=== PATIENT | female | born 1970 | race Asian ===

== ENCOUNTER 2018-05-05 07:27 | Day surgery (SDC) | payer OTHER ==
[~2018-05-05 07:27] MED LIST: DESFLURANE 15 MIN
[2018-05-05] MEDS ORDERED: SOD CHLORIDE 0.9% 1,000 ML IV (09:00)
[2018-05-05] MEDS ORDERED: CEFAZOLIN 1 GM/50 ML (PMX) 50 ML IVPB (09:00)
[2018-05-05] MEDS ORDERED: METOCLOPRAMIDE 10 MG INJ IV (13:00)
[2018-05-05] MEDS ORDERED: FENTAnyl 50 MCG/ML VIAL IV (13:00)
[2018-05-05] MEDS ORDERED: LABETALOL HCL 20MG INJ IV (13:00)
[2018-05-05] MEDS ORDERED: hydrALAzine 20 MG INJ IV (13:00)
[2018-05-05] MEDS ORDERED: HYDROmorphONE 1 MG/5 ML IV SYRINGE IV ×2 (13:00)
[2018-05-05] MEDS ORDERED: FENTAnyl 50 MCG/ML VIAL (13:44)
[2018-05-05] MEDS ORDERED: SUGAMMADEX SODIUM 200 MG/2 ML VIAL IV (13:44)
[2018-05-05] MEDS ORDERED: MIDAZOLAM 1 MG/ML 2 ML INJ (13:44)
[2018-05-05] MEDS ORDERED: PHENYLephrine (100 MCG/ML) 10ML SYG (13:44)
[2018-05-05] MEDS ORDERED: DEXAMETHASONE 4 MG/ML 5 ML INJ (13:56)
[2018-05-05] MEDS ORDERED: CEFAZOLIN 1 GM INJ (13:56)
[2018-05-05] MEDS ORDERED: ONDANSETRON 4 MG INJ (13:56)
[2018-05-05] MEDS ORDERED: ROCURONIUM 50 MG INJ (14:10)
[2018-05-05] MEDS ORDERED: LIDOCAINE 100 MG SYRINGE (14:10)
[2018-05-05] MEDS ORDERED: PROPOFOL 20 ML (14:10)
[2018-05-05] MEDS: MEPERIDINE 25 MG INJ IV (15:36)
[2018-05-05] MEDS: ONDANSETRON 4 MG INJ IV (15:37)
[2018-05-05] MEDS: FENTAnyl 50 MCG/ML VIAL IV ×2 (15:45→15:54)
[2018-05-05] MEDS: HYDROCODONE/APAP (7.5/325) TAB PO (16:14)
== END 2018-05-05 17:35 | disposition home or self-care (01) ==
LOC: SDS 07:27
DX: D05.12 Intraductal carcinoma in situ of left breast (principal)
CPT/HCPCS: 19120; 84703; 88307

== ENCOUNTER 2018-05-16 23:12 | Inpatient (IN) | payer OTHER ==
[2018-05-17] MEDS: VANCOMYCIN 1 GM (PMX) 250 ML IVPB (01:00)
[2018-05-17] MEDS: SODIUM CHLORIDE 0.9% 1L BAG IV* (01:05)
[2018-05-17] MEDS: morphine 2 MG INJ IV (01:05)
[2018-05-17] MEDS: PIPER-TAZO 3.375 GM IV (PMX) 100 ML IVPB ×5 (01:05→23:40)
[2018-05-17] MEDS: ONDANSETRON 4 MG INJ IV (01:05)
[2018-05-17 01:22] LABS: ADD UMIC YES; UR ASCORBIC ACID NEGATIVE (NEGATIVE); UR BACTERIA FEW /HPF (NONE SEEN); UR BILIRUBIN (Dip) NEGATIVE (NEGATIVE); UR BLOOD (Dip) 2+ mg/dL (NEGATIVE); UR CLARITY CLEAR (CLEAR); UR COLOR YELLOW (YELLOW); UR GLUCOSE (Dip) NEGATIVE (NEGATIVE); UR KETONES (Dip) TRACE mg/dL (NEGATIVE); UR LEUKOCYTE ESTERASE (Dip) TRACE Leu/ul (NEGATIVE); UR MUCUS FEW /HPF (NONE SEEN); UR NITRITE (Dip) NEGATIVE (NEGATIVE); UR RBC 2 /HPF (0-5); UR SPECIFIC GRAVITY (Dip) 1.011 (1.003-1.030); UR TOTAL PROTEIN (Dip) NEGATIVE (NEGATIVE); UR UROBILINOGEN (Dip) NEGATIVE (NEGATIVE); UR WBC 5 /HPF (0-5)
[2018-05-17 01:25] LABS: ADD MAN DIFF? NO
[2018-05-17 01:26] LABS: BASOPHILS % 0.4 % (0.0-2.0); EOSINOPHILS # 0.7 10^3/ul (0.0-0.5); EOSINOPHILS % 7.8 % (0.0-7.0); HEMATOCRIT 32.9 % (37.0-47.0); LYMPHOCYTES # 1.6 10^3/ul (0.8-2.9); LYMPHOCYTES % 17.9 % (15.0-51.0); MEAN CORPUSCULAR HEMOGLOBIN 31.1 pg (29.0-33.0); MEAN CORPUSCULAR HGB CONC 33.4 g/dl (32.0-37.0); MEAN CORPUSCULAR VOLUME 92.9 fl (82.0-101.0); MEAN PLATELET VOLUME 9.6 fl (7.4-10.4); MONOCYTE # 0.8 10^3/ul (0.3-0.9); MONOCYTES % 8.6 % (0.0-11.0); NEUTROPHIL # 5.8 10^3/ul (1.6-7.5); NEUTROPHILS % 65.1 % (39.0-77.0); PLATELET COUNT 311 10^3/UL (140-415); RED BLOOD COUNT 3.54 10^6/ul (4.20-5.40); RED CELL DISTRIBUTION WIDTH 11.8 % (11.5-14.5)
[2018-05-17 01:26] LABS: WHITE BLOOD COUNT 8.9 10^3/ul (4.8-10.8)
[2018-05-17 01:33] LABS: INR 0.87; PROTIME 11.9 Sec (11.9-14.9); PT RATIO 0.9
[2018-05-17 01:34] LABS: ALANINE AMINOTRANSFERASE 27 IU/L (13-69); ALBUMIN 4.1 g/dl (3.3-4.9); ALKALINE PHOSPHATASE 60 IU/L (42-121); ANION GAP 6 (5-13); ASPARTATE AMINO TRANSFERASE 29 IU/L (15-46); BILIRUBIN,INDIRECT 0.1 mg/dl (0-1.1); BILIRUBIN,TOTAL 0.1 mg/dl (0.2-1.3); BLOOD UREA NITROGEN 11 mg/dl (7-20); CALCIUM 9.5 mg/dl (8.4-10.2); CARBON DIOXIDE 29 mmol/L (21-31); CHLORIDE 108 mmol/L (97-110); CREATININE 0.58 mg/dl (0.44-1.00); Estimated GFR > 60 mL/min (>60); GLUCOSE 114 mg/dl (70-220); POTASSIUM 3.6 mmol/L (3.5-5.1); SODIUM 143 mmol/L (135-144); TOTAL PROTEIN 7.8 g/dl (6.1-8.1)
[2018-05-17 01:45] LABS: TROPONIN-I < 0.012 ng/ml (0.000-0.120)
[2018-05-17] MEDS ORDERED: HYDROCODONE/APAP (5/325) TAB PO (02:00)
[2018-05-17] MEDS ORDERED: NACL 0.9% 3 ML SYG IV (02:00)
[2018-05-17] MEDS ORDERED: morphine 2 MG INJ IV (02:00)
[2018-05-17] MEDS ORDERED: VANCOMYCIN IV PER PHARMACY XX (02:00)
[2018-05-17 06:17] LABS: ADD MAN DIFF? NO
[2018-05-17 06:22] LABS: BASOPHILS % 0.5 % (0.0-2.0); EOSINOPHILS # 0.5 10^3/ul (0.0-0.5); EOSINOPHILS % 7.9 % (0.0-7.0); HEMATOCRIT 28.6 % (37.0-47.0); HEMOGLOBIN 9.4 g/dl (12.0-16.0); LYMPHOCYTES # 1.6 10^3/ul (0.8-2.9); MEAN CORPUSCULAR HEMOGLOBIN 30.5 pg (29.0-33.0); MEAN CORPUSCULAR HGB CONC 32.9 g/dl (32.0-37.0); MEAN CORPUSCULAR VOLUME 92.9 fl (82.0-101.0); MONOCYTE # 0.5 10^3/ul (0.3-0.9); MONOCYTES % 8.9 % (0.0-11.0); NEUTROPHIL # 3.4 10^3/ul (1.6-7.5); NEUTROPHILS % 56.4 % (39.0-77.0); PLATELET COUNT 251 10^3/UL (140-415); RED BLOOD COUNT 3.08 10^6/ul (4.20-5.40); RED CELL DISTRIBUTION WIDTH 11.9 % (11.5-14.5)
[2018-05-17 06:22] LABS: WHITE BLOOD COUNT 6.1 10^3/ul (4.8-10.8)
[2018-05-17 06:49] LABS: LACTIC ACID 0.7 mmol/L (0.5-2.0)
[2018-05-17 06:57] LABS: ALANINE AMINOTRANSFERASE 27 IU/L (13-69); ALBUMIN 3.2 g/dl (3.3-4.9); ALKALINE PHOSPHATASE 44 IU/L (42-121); ANION GAP 6 (5-13); ASPARTATE AMINO TRANSFERASE 21 IU/L (15-46); BILIRUBIN,INDIRECT 0.2 mg/dl (0-1.1); BILIRUBIN,TOTAL 0.2 mg/dl (0.2-1.3); BLOOD UREA NITROGEN 7 mg/dl (7-20); CALCIUM 8.5 mg/dl (8.4-10.2); CARBON DIOXIDE 28 mmol/L (21-31); CHLORIDE 111 mmol/L (97-110); CREATININE 0.56 mg/dl (0.44-1.00); Estimated GFR > 60 mL/min (>60); GLUCOSE 101 mg/dl (70-220); MAGNESIUM 2.2 mg/dl (1.7-2.5); SODIUM 145 mmol/L (135-144); TOTAL PROTEIN 6.1 g/dl (6.1-8.1)
[2018-05-17] MEDS: VANCOMYCIN 1 GM 250 ML IVPB ×2 (07:52→20:26)
[2018-05-17 13:31] LABS: C-REACTIVE PROTEIN 3.7 mg/dl (0.0-0.9)
[2018-05-17 14:04] LABS: ERYTHROCYTE SEDIMENTATION RATE 50 mm/Hr (0-20)
[2018-05-17] MEDS ORDERED: GUAIFENESIN/DM 5ML CUP PO (16:00)
[2018-05-17] MEDS: LACTOBACILLUS RHAMNOSUS CAP PO (20:26)
[2018-05-18] MEDS: HYDROCODONE/APAP (10/325) TAB PO ×2 (04:35→23:23)
[2018-05-18] MEDS: PIPER-TAZO 3.375 GM IV (PMX) 100 ML IVPB ×4 (05:43→23:23)
[2018-05-18 07:13] LABS: ADD MAN DIFF? NO
[2018-05-18 07:18] LABS: BASOPHILS % 0.7 % (0.0-2.0); EOSINOPHILS # 0.5 10^3/ul (0.0-0.5); HEMATOCRIT 28.9 % (37.0-47.0); HEMOGLOBIN 9.5 g/dl (12.0-16.0); LYMPHOCYTES # 1.5 10^3/ul (0.8-2.9); LYMPHOCYTES % 36.4 % (15.0-51.0); MEAN CORPUSCULAR HEMOGLOBIN 30.3 pg (29.0-33.0); MEAN CORPUSCULAR HGB CONC 32.9 g/dl (32.0-37.0); MEAN PLATELET VOLUME 9.1 fl (7.4-10.4); MONOCYTE # 0.4 10^3/ul (0.3-0.9); MONOCYTES % 9.1 % (0.0-11.0); NEUTROPHIL # 1.7 10^3/ul (1.6-7.5); NEUTROPHILS % 41.6 % (39.0-77.0); PLATELET COUNT 252 10^3/UL (140-415); RED BLOOD COUNT 3.14 10^6/ul (4.20-5.40)
[2018-05-18 07:18] LABS: WHITE BLOOD COUNT 4.1 10^3/ul (4.8-10.8)
[2018-05-18 07:36] LABS: INR 0.92; PROTIME 12.5 Sec (11.9-14.9)
[2018-05-18 07:55] LABS: ALANINE AMINOTRANSFERASE 38 IU/L (13-69); ALBUMIN 3.2 g/dl (3.3-4.9); ALBUMIN/GLOBULIN RATIO 1.18; ALKALINE PHOSPHATASE 47 IU/L (42-121); ANION GAP 6 (5-13); ASPARTATE AMINO TRANSFERASE 32 IU/L (15-46); BILIRUBIN,INDIRECT 0.1 mg/dl (0-1.1); BILIRUBIN,TOTAL 0.1 mg/dl (0.2-1.3); BLOOD UREA NITROGEN 4 mg/dl (7-20); CARBON DIOXIDE 27 mmol/L (21-31); CHLORIDE 109 mmol/L (97-110); Estimated GFR > 60 mL/min (>60); GLUCOSE 97 mg/dl (70-220); MAGNESIUM 2.3 mg/dl (1.7-2.5); POTASSIUM 3.6 mmol/L (3.5-5.1); SODIUM 142 mmol/L (135-144); TOTAL PROTEIN 5.9 g/dl (6.1-8.1)
[2018-05-18 08:12] LABS: VANCOMYCIN,TROUGH 7.6 ug/ml (10.0-20.0)
[2018-05-18] MEDS: LACTOBACILLUS RHAMNOSUS CAP PO ×2 (08:46→20:24)
[2018-05-18] MEDS: VANCOMYCIN 1 GM 250 ML IVPB (08:46)
[2018-05-18] MEDS: ENOXAPARIN 40 MG/0.4 ML SYG SC (08:49)
[2018-05-18] MEDS: ACETAMINOPHEN 325 MG TAB PO ×2 (11:34→17:44)
[2018-05-18] MEDS: VANCOMYCIN HCL 1.25 GM in SOD CHLORIDE 0.9% 250 ML IVPB (18:50)
[2018-05-19] MEDS: PIPER-TAZO 3.375 GM IV (PMX) 100 ML IVPB ×3 (05:03→17:11)
[2018-05-19 05:14] LABS: ADD MAN DIFF? NO; BASOPHILS % 0.7 % (0.0-2.0); EOSINOPHILS # 0.6 10^3/ul (0.0-0.5); EOSINOPHILS % 12.2 % (0.0-7.0); HEMATOCRIT 29.4 % (37.0-47.0); HEMOGLOBIN 9.6 g/dl (12.0-16.0); LYMPHOCYTES # 1.9 10^3/ul (0.8-2.9); LYMPHOCYTES % 41.1 % (15.0-51.0); MEAN CORPUSCULAR HEMOGLOBIN 30.3 pg (29.0-33.0); MEAN CORPUSCULAR HGB CONC 32.7 g/dl (32.0-37.0); MEAN CORPUSCULAR VOLUME 92.7 fl (82.0-101.0); MEAN PLATELET VOLUME 9.2 fl (7.4-10.4); MONOCYTE # 0.4 10^3/ul (0.3-0.9); MONOCYTES % 8.2 % (0.0-11.0); NEUTROPHIL # 1.7 10^3/ul (1.6-7.5); NEUTROPHILS % 37.6 % (39.0-77.0); PLATELET COUNT 277 10^3/UL (140-415); RED BLOOD COUNT 3.17 10^6/ul (4.20-5.40); RED CELL DISTRIBUTION WIDTH 11.9 % (11.5-14.5)
[2018-05-19 05:14] LABS: WHITE BLOOD COUNT 4.5 10^3/ul (4.8-10.8)
[2018-05-19] MEDS: VANCOMYCIN HCL 1.25 GM in SOD CHLORIDE 0.9% 250 ML IVPB ×2 (05:35→18:01)
[2018-05-19] MEDS: LACTOBACILLUS RHAMNOSUS CAP PO ×2 (08:41→21:45)
[2018-05-19] MEDS: HYDROCODONE/APAP (10/325) TAB PO ×2 (08:42→17:16)
[2018-05-19] MEDS: ENOXAPARIN 40 MG/0.4 ML SYG SC (08:46)
[2018-05-19] MEDS: morphine LIQ (10 MG/5 ML) CUP PO (18:04)
[2018-05-19] MEDS: ACETAMINOPHEN 325 MG TAB PO (21:51)
[2018-05-20] MEDS: PIPER-TAZO 3.375 GM IV (PMX) 100 ML IVPB ×3 (00:15→12:10)
[2018-05-20] MEDS: DIPHENHYDRAMINE 25 MG CAP PO (00:15)
[2018-05-20] MEDS: DIPHENHYDRAMINE 1%/ZINC 28.3 GM CR TOP (00:15)
[2018-05-20 05:21] LABS: VANCOMYCIN,TROUGH 13.7 ug/ml (10.0-20.0)
[2018-05-20] MEDS: ACETAMINOPHEN 325 MG TAB PO (05:27)
[2018-05-20] MEDS: VANCOMYCIN HCL 1.25 GM in SOD CHLORIDE 0.9% 250 ML IVPB (06:36)
[2018-05-20] MEDS: ENOXAPARIN 40 MG/0.4 ML SYG SC (09:07)
[2018-05-20] MEDS: LACTOBACILLUS RHAMNOSUS CAP PO ×2 (09:07→21:11)
[2018-05-20 11:01] LABS: PROCALCITONIN <0.10 ng/mL (<0.10)
[2018-05-20] MEDS ORDERED: BISACODYL (EC) 5 MG TAB PO (13:30)
[2018-05-20] MEDS: CEFAZOLIN 1 GM/50 ML (PMX) 50 ML IVPB (21:11)
[2018-05-21 05:22] LABS: ADD MAN DIFF? NO
[2018-05-21 05:26] LABS: BASOPHILS % 0.5 % (0.0-2.0); EOSINOPHILS # 0.8 10^3/ul (0.0-0.5); EOSINOPHILS % 13.9 % (0.0-7.0); HEMATOCRIT 30.5 % (37.0-47.0); HEMOGLOBIN 10.3 g/dl (12.0-16.0); LYMPHOCYTES # 1.3 10^3/ul (0.8-2.9); LYMPHOCYTES % 21.5 % (15.0-51.0); MEAN CORPUSCULAR HEMOGLOBIN 30.7 pg (29.0-33.0); MEAN CORPUSCULAR HGB CONC 33.8 g/dl (32.0-37.0); MONOCYTE # 0.5 10^3/ul (0.3-0.9); MONOCYTES % 7.7 % (0.0-11.0); NEUTROPHIL # 3.3 10^3/ul (1.6-7.5); NEUTROPHILS % 56.1 % (39.0-77.0); PLATELET COUNT 338 10^3/UL (140-415); RED BLOOD COUNT 3.35 10^6/ul (4.20-5.40); RED CELL DISTRIBUTION WIDTH 11.9 % (11.5-14.5)
[2018-05-21 06:16] LABS: ANION GAP 7 (5-13); BLOOD UREA NITROGEN 6 mg/dl (7-20); CALCIUM 9.1 mg/dl (8.4-10.2); CARBON DIOXIDE 28 mmol/L (21-31); CHLORIDE 105 mmol/L (97-110); CREATININE 0.56 mg/dl (0.44-1.00); Estimated GFR > 60 mL/min (>60); GLUCOSE 87 mg/dl (70-220); POTASSIUM 3.7 mmol/L (3.5-5.1); SODIUM 140 mmol/L (135-144)
[2018-05-21] MEDS: CEFAZOLIN 1 GM/50 ML (PMX) 50 ML IVPB ×2 (06:16→14:19)
[2018-05-21] MEDS: LACTOBACILLUS RHAMNOSUS CAP PO (08:20)
[2018-05-21] MEDS: ENOXAPARIN 40 MG/0.4 ML SYG SC (08:22)
== END 2018-05-21 17:15 | disposition home or self-care (01) | DRG 863 ==
LOC: E/R 23:12 → MS1 05-17 01:55
DX: T81.49XA Infection following a procedure, other surgical site, initial encounter (principal); N61.1 Abscess of the breast and nipple; D64.9 Anemia, unspecified; B95.61 Methicillin susceptible Staphylococcus aureus infection as the cause of diseases classified elsewhere; L76.82 Other postprocedural complications of skin and subcutaneous tissue; Z85.3 Personal history of malignant neoplasm of breast
CPT/HCPCS: 36415; 71045; 76641; 80048; 80053; 80202; 81001; 81025; 83605; 83735; 84145; 84443; 84484; 85025; 85610; 85651; 85730; 86140; 87040; 87070; 87086; 93005; 96374; 96375; 99285-25

== ENCOUNTER 2018-06-10 08:42 | Observation (INO) | payer OTHER ==
[~2018-06-10 08:42] MED LIST changes: +CEFAZOLIN 2 GM/50 ML (PMX) 50 ML IVPB; -DESFLURANE 15 MIN; +SOD CHLORIDE 0.9% 1,000 ML IV
[2018-06-10] MEDS ORDERED: MIDAZOLAM 1 MG/ML 2 ML INJ (12:18)
[2018-06-10] MEDS ORDERED: FENTAnyl 50 MCG/ML VIAL ×2 (12:18→13:58)
[2018-06-10] MEDS ORDERED: OXYCODONE/ACETAMINOPHEN (5/325) TAB PO (12:30)
[2018-06-10] MEDS ORDERED: hydrALAzine 20 MG INJ IV (12:30)
[2018-06-10] MEDS ORDERED: DIPHENHYDRAMINE 50 MG INJ IV (12:30)
[2018-06-10] MEDS ORDERED: PROCHLORPERAZINE 10 MG INJ IV (12:30)
[2018-06-10] MEDS ORDERED: EPHEDrine SULFATE 50 MG/5 ML SYG IV (12:30)
[2018-06-10] MEDS ORDERED: LABETALOL HCL 20MG INJ IV (12:30)
[2018-06-10] MEDS ORDERED: HYDROmorphONE 1 MG/5 ML IV SYRINGE IV ×2 (12:30)
[2018-06-10] MEDS ORDERED: CEFAZOLIN 1 GM INJ (12:35)
[2018-06-10] MEDS ORDERED: PROPOFOL 20 ML (12:35)
[2018-06-10] MEDS ORDERED: LIDOCAINE 2% (SDV) 5 ML INJ (12:35)
[2018-06-10] MEDS ORDERED: DEXAMETHASONE 4 MG/ML 5 ML INJ (12:37)
[2018-06-10] MEDS ORDERED: FAMOTIDINE 20 MG INJ (12:37)
[2018-06-10] MEDS ORDERED: ONDANSETRON 4 MG INJ (12:37)
[2018-06-10] MEDS: ISOSULFAN BLUE 1% 5 ML INJ SC (13:01)
[2018-06-10] MEDS ORDERED: ACETAMINOPHEN 1000MG/100ML IV 100 ML IVPB (13:30)
[2018-06-10] MEDS: HYDROmorphONE 1 MG/5 ML IV SYRINGE IV (14:39)
[2018-06-10] MEDS: MEPERIDINE 25 MG INJ IV (14:48)
[2018-06-10] MEDS: FENTAnyl 50 MCG/ML VIAL IV (14:49)
[2018-06-10] MEDS: ONDANSETRON 4 MG INJ IV (14:52)
[2018-06-10] MEDS: morphine 2 MG INJ IV ×3 (17:59→22:48)
[2018-06-10] MEDS: D5W-0.45 NACL + KCL 20 MEQ 1,000 ML IV ×2 (18:22→21:17)
[2018-06-11] MEDS: D5W-0.45 NACL + KCL 20 MEQ 1,000 ML IV ×2 (02:15→10:51)
[2018-06-11] MEDS: HYDROCODONE/APAP (5/325) TAB PO (06:13)
[2018-06-11] MEDS: ONDANSETRON 4 MG INJ IV (10:47)
[2018-06-11] MEDS: morphine 2 MG INJ IV (10:50)
== END 2018-06-11 17:45 | disposition home or self-care (01) ==
LOC: SDS 08:42 → REC 13:17 → 2NE 15:55
DX: N60.92 Unspecified benign mammary dysplasia of left breast (principal); Z85.3 Personal history of malignant neoplasm of breast
CPT/HCPCS: 19301; 88307; 99217